=== PATIENT | male | born 1995 | race Two or more races ===

== ENCOUNTER 2021-11-07 07:03 | Emergency (ER) | payer MEDICAID ==
[~2021-11-07] VITALS: Ht 188 cm; Wt 179.2 kg
[2021-11-07 07:03] VITALS: BP 157/100
== END 2021-11-07 10:00 | disposition left against medical advice (07) ==
LOC: ER 07:03
DX: J02.9 Acute pharyngitis, unspecified (principal); Z53.21 Procedure and treatment not carried out due to patient leaving prior to being seen by health care provider